=== PATIENT | male | born 1975 | race Caucasian/White ===

== ENCOUNTER 2019-03-03 17:24 | Emergency (ER) | payer MEDICAID, MEDICARE ==
--- NOTE | 2019-03-03 18:27 | UC ---
Shoulder Pain HPI - HPI Summary HPI Summary: 43-year-old male comes in with a chief complaint of left arm pain. Several weeks ago he is working on his trailer when something fell and he caught the weight of it with his left arm. He had immediate pain in the left mid humerus area and the left shoulder. Over time it has improved but has not gone away. Recently when he's been working he's making the pain worse. Reports the main area pains mid humerus and it tends to shoot up or down the arm. No weakness or numbness. - History of Current Complaint Chief Complaint: UCUpperExtremity Stated Complaint: LT ARM COMPLAINT Time Seen by Provider: 03/03/19 17:55 Pain Intensity: 4 - Allergies/Home Medications Allergies/Adverse Reactions: Allergies Allergy/AdvReac Type Severity Reaction Status Date / Time No Known Allergies Allergy Verified 03/03/19 17:53 Home Medications: Home Medications Acetaminophen [Pain Relief] 1,000 mg PO BID 03/03/19 [History Confirmed 03/03/19 ] Aspirin 81 mg CHEW TAB* [Aspirin Low Dose TAB*] 81 mg PO DAILY 03/03/19 [ History Confirmed 03/03/19] Cyclobenzaprine TAB* [Flexeril 10 MG TAB*] 10 mg PO TID PRN 03/03/19 [History Confirmed 03/03/19] Morphine Sulfate [Morphabond ER] 15 mg PO Q8H 03/03/19 [History Confirmed ] Oxycodone HCl 10 mg PO Q12H 03/03/19 [History Confirmed 03/03/19] PMH/Surg Hx/FS Hx/Imm Hx Previously Healthy: Yes - CHRONIC PAIN - Surgical History Surgical History: Yes Surgery Procedure, Year, and Place: ankle surgery - 1989. right shoulder surgery - 2010, 2009. left knee, 2011 - Family History Known Family History: Positive: Non-Contributory - Social History Alcohol Use: Rare Substance Use Type: None Smoking Status (MU): Heavy Every Day Tobacco Smoker Type: Cigarettes Amount Used/How Often: 2 PPD Household Exposure Type: Cigarettes Review of Systems All Other Systems Reviewed And Are Negative: Yes Constitutional: Positive: Negative Skin: Positive: Negative Eyes: Positive: Negative ENT: Positive: Negative Respiratory: Positive: Negative Cardiovascular: Positive: Negative Gastrointestinal: Positive: Negative Motor: Positive: Negative Neurovascular: Positive: Negative Musculoskeletal: Positive: Other: - SEE HPI Neurological: Positive: Negative Psychological: Positive: Negative Is Patient Immunocompromised?: No Physical Exam Triage Information Reviewed: Yes Appearance: Well-Appearing, No Pain Distress, Well-Nourished Vital Signs: Initial Vital Signs Temp 97.8 F 03/03/19 17:59 Pulse 89 03/03/19 17:59 Resp 20 03/03/19 17:59 BP 183/100 03/03/19 17:59 Pulse Ox 99 03/03/19 17:59 Vital Signs Reviewed: Yes Eye Exam: Normal Eyes: Positive: Conjunctiva Clear Neck: Positive: Supple Respiratory: Positive: No respiratory distress Musculoskeletal: Positive: Other: - Patient is mildly tender to palpation at the left shoulder joint. Normal radial pulses bilaterally normal sensation normal capillary refill. Fingers wrists and elbows have full range of motion full-strength. Patient has a prior history of right shoulder surgery and on shoulder range of motion examination extension is 110 on the left 90 on the right. Abduction on the left is 110 and 80 on the right. Internal rotation is L1 on the left at L3 on the right. Neurological: Positive: Alert Psychological: Positive: Age Appropriate Behavior Skin Exam: Normal Shoulder Course/Dx - Course Course Of Treatment: I discussed the x-rays with the patient and his . I do not see any fractures radiologist reading is pending. There is some calcium in the shoulder joint. Patient's pain is worse primarily with abduction of the shoulder and extension of the shoulder at the shoulder joint. Patient to follow -up with sports medicine or orthopedics. - Differential Dx/Diagnosis Provider Diagnosis: Left shoulder pain Discharge - Sign-Out/Discharge Documenting (check all that apply): Patient Departure All imaging exams completed and their final reports reviewed: No - Discharge Plan Condition: Stable Disposition: HOME Patient Education Materials: Shoulder Pain (ED) Referrals: Moses Mello MD [Primary Care Provider] - [facility] [Provider Group] De Wise MD [Medical Doctor] - Additional Instructions: FOLLOW UP WITH SPORTS MEDICINE OR ORTHOPEDICS, DR WISE. GET REEVALUATED SOONER IF WORSE OR ANY QUESTIONS OR CONCERNS. - Billing Disposition and Condition Condition: STABLE Disposition: Home
[2019-03-03 18:53] VITALS: BP 158/88
--- NOTE | 2019-03-04 21:34 | UC ---
- Progress Note Progress Note: Patient Name: ANDREIA ROBB Medical Record#: [id number] Ordering Physician: Marvin Hogan MD Acct.#: [id number] : 1975 Age: 43 Sex: M Location: [facility] [place] Exam Date: 03/03/191814 ADM Status: [facility] ER Order Information: HUMERUS LEFT Accession Number: [id number] CPT: 49212 INDICATION: Left humerus injury. TECHNIQUE: 2 views of the left humerus were obtained. FINDINGS: The soft tissues are unremarkable. The bone mineralization is within normal limits. No fracture is identified. Anatomic alignment is maintained. The joint spaces are preserved. IMPRESSION: NO EVIDENCE FOR FRACTURE. R0 Preliminary Imaging Read R0 <Electronically signed by Andrea Jerez MD in OV> 03/04/19742 Dictated By: Andrea Jerez MD Dictated Date/Time: 03/04/19742 Transcribed Date/Time: 03/04/19741 Copy to: CC:Moses Mello MD; Marvin Hogan MD Imaging - [facility] Imaging - [facility] Urgent [facility] [address] [place] [address] ph ([phone]) ph ([phone]) ph ([phone]) This report is only to be considered final once signed by the Provider(s) as displayed in the "<Electronically Signed by >" field (s). Absence of a signature indicates the report is in a draft status and still needs to be finalized. In the event this document was created by someone other than the signing Provider, the individual initiating the document will be listed in the "Entered by:" or "Dictated by:" shelby. 1 of 1 Patient Name: ANDREIA ROBB Medical Record#: [id number] Ordering Physician: Marvin Hogan MD Acct.#: [id number] : 1975 Age: 43 Sex: M Location: [facility] [place] Exam Date: 03/03/191814 ADM Status: DEP ER Order Information: SHOULDER LEFT 2+ VWS Accession Number: [id number] CPT: 12605 INDICATION: Left shoulder injury. TECHNIQUE: 4 views of the left shoulder were obtained. FINDINGS: The soft tissues are unremarkable. The bone mineralization is within normal limits. There is dystrophic calcification at the insertion point of the supraspinous tendon No fracture is identified. Anatomic alignment is maintained. The joint spaces are preserved. IMPRESSION: 1. NO FRACTURE OR TRAUMATIC MALALIGNMENT. 2. SUPRASPINATUS CALCIFIC TENDINOSIS. R0 Preliminary Imaging Read R0 <Electronically signed by Andrea Jerez MD in OV> 03/04/1947 Dictated By: Andrea Jerez MD Dictated Date/Time: 03/04/19744 Transcribed Date/Time: 03/04/19742 Copy to: CC:Moses Mello MD; Marvin Hogan MD Imaging - [facility] Imaging [facility] [address] [place] [address] ph ([phone]) ph ([phone]) ph ([phone]) This report is only to be considered final once signed by the Provider(s) as displayed in the "<Electronically Signed by >" field (s). Absence of a signature indicates the report is in a draft status and still needs to be finalized. In the event this document was created by someone other than the signing Provider, the individual initiating the document will be listed in the "Entered by:" or "Dictated by:" shelby. 1 of 1 Course/Dx - Diagnoses Provider Diagnoses: Left shoulder pain Discharge - Sign-Out/Discharge Documenting (check all that apply): Post-Discharge Follow Up All imaging exams completed and their final reports reviewed: Yes - Discharge Plan Condition: Stable Disposition: HOME Patient Education Materials: Shoulder Pain (ED) Referrals: [facility] [Provider Group] De Wise MD [Medical Doctor] - Moses Mello MD [Primary Care Provider] - Additional Instructions: FOLLOW UP WITH SPORTS MEDICINE OR ORTHOPEDICS, DR WISE. GET REEVALUATED SOONER IF WORSE OR ANY QUESTIONS OR CONCERNS. - Billing Disposition and Condition Condition: STABLE Disposition: Home
== END 2019-03-03 19:01 | disposition home or self-care (01) ==
LOC: UCCORT 17:24
DX: M25.512 Pain in left shoulder (principal); M75.32 Calcific tendinitis of left shoulder; F17.210 Nicotine dependence, cigarettes, uncomplicated
CPT/HCPCS: 99201; G0463